=== PATIENT | female | born 1995 ===

== ENCOUNTER 2018-05-26 13:17 | Emergency (ER) | payer BC ==
[2018-05-26 13:48] VITALS: O2SAT 100
--- NOTE | 2018-05-26 15:00 | ED PDOC ---
HPI: Abdomen Time Seen by Provider: 05/26/18 14:19 Chief Complaint (Nursing): Abdominal Pain Chief Complaint (Provider): Vomiting, Abdominal Pain History Per: Patient History/Exam Limitations: no limitations Onset/Duration Of Symptoms: Days (x8) Current Symptoms Are (Timing): Still Present Additional Complaint(s): 23 year old female presents to the ED for evaluation of vomiting and abdominal pain beginning eight days ago. Patient reports that since onset, she has been vomiting 5-6 times per day. Patient notes that she had one episode of yellow stomach secretions, and one episode of blood tinged emesis, but it was not reoccurring. She states she was just going to wait until it passed on its own, but today at work she felt lightheaded associated with a headache and the sensation that she might pass out, prompting the visit. Otherwise, she denies diarrhea, black or bloody stool, fever, chills, vaginal bleeding or discharge, urinary frequency or dysuria, and hematuria, but does note dark urine. LNMP: 1 year ago due to Depo shot, last dose in April. PMD: none provided, but gyno is [facility] Past Medical History Reviewed: Historical Data, Nursing Documentation, Vital Signs Vital Signs: Last Vital Signs Temp 98.5 F 05/26/18 18:28 Pulse 74 05/26/18 18:28 Resp 17 05/26/18 18:28 BP 125/61 05/26/18 18:28 Pulse Ox 100 05/26/18 18:28 - Medical History PMH: Asthma - Surgical History Surgical History: No Surg Hx - Family History Family History: States: No Known Family Hx - Social History Current smoker - smoking cessation education provided: Yes Alcohol: Social Drugs: Cannabis (occasionally) - Home Medications Home Medications: Ambulatory Orders Medication Instructions Recorded Amoxicillin 1,000 mg PO BID #56 tablet 05/26/18 Clarithromycin [Biaxin Filmtab] 500 mg PO DAILY #28 tab 05/26/18 Omeprazole Magnesium [Prilosec Otc] 20 mg PO BID #30 tcp 05/26/18 Ondansetron ODT [Zofran ODT] 1 odt PO Q6 PRN #20 odt 05/26/18 - Allergies Allergies/Adverse Reactions: Allergies Allergy/AdvReac Type Severity Reaction Status Date / Time kiwi Allergy ITCHING Verified 05/26/18 13:45 lavender (Lavandula Allergy SWELLING Verified 05/26/18 13:45 angustifolia) pineapple Allergy ITCHING Verified 05/26/18 13:45 Review of Systems ROS Statement: Except As Marked, All Systems Reviewed And Found Negative Constitutional: Negative for: Fever, Chills Cardiovascular: Positive for: Light Headedness Gastrointestinal: Positive for: Vomiting (x5-6 per day), Abdominal Pain, Other ( dark urine). Negative for: Diarrhea, Melena (or bloody stool) Genitourinary Female: Negative for: Dysuria, Frequency, Hematuria, Vaginal Discharge, Vaginal Bleeding Neurological: Positive for: Headache Physical Exam - Reviewed Nursing Documentation Reviewed: Yes Vital Signs Reviewed: Yes - Physical Exam Appears: Positive for: Non-toxic, In Acute Distress (mild painful) Head Exam: Positive for: ATRAUMATIC, NORMOCEPHALIC Skin: Positive for: Warm, Dry Eye Exam: Positive for: EOMI, PERRL ENT: Negative for: Pharyngeal Erythema, Tonsillar Exudate Neck: Positive for: Painless ROM, Supple Cardiovascular/Chest: Positive for: Regular Rate, Rhythm. Negative for: Murmur Respiratory: Positive for: Normal Breath Sounds. Negative for: Wheezing Gastrointestinal/Abdominal: Positive for: Tenderness (epigastric). Negative for : Mass, Guarding, Rebound, Other (baltazar's sign and mcburney's point tenderness) Back: Positive for: Normal Inspection. Negative for: Decreased ROM Extremity: Positive for: Normal ROM. Negative for: Deformity Lymphatic: Negative for: Adenopathy Neurologic/Psych: Positive for: Alert. Negative for: Motor/Sensory Deficits - Laboratory Results Result Diagrams: 05/26/18 15:20 05/26/18 15:20 - ECG O2 Sat by Pulse Oximetry: 100 (RA) Pulse Ox Interpretation: Normal Medical Decision Making Medical Decision Making: Time: 1420 Initial Impression: vomiting and epigastric pain Ddx includes but is not limited to: gastritis, dehydration, gall bladder disease , hepatitis, pancreatitis, electrolyte abnormality, Initial Plan: --CMP --Lact acid, plasma --LDH --Lipase --Magnesium --Phosphorus --Urine preg --Urine dipstick --CBC with differential --Dextrose 5% / 0.9% 1000 ml IV 100 mls/hr --Lactated Ringers 1000ml IV 1000 mls/hr --Pepcid 20mg IVP --Zofran 8mg IV --Accucheck Accession No. : [id number] Patient Name / ID : ERICKA CARPENTER / [id number] Exam Date : 05/26/2018 15:59:36 ( Approved ) Study Comment : Sex / Age : F / 23Y Creator : Kavon Bishop MD Dictator : Kavon Bishop MD Laminating Machine Tender : Power Crane Operator : Kavon Bishop MD Approver2 : Report Date : 05/26/2018 16:44:42 My Comment : Date of service: 05/26/2018 HISTORY: Vomiting and abdominal pain COMPARISON: None. TECHNIQUE: Sonographic evaluation of the abdomen. FINDINGS: LIVER: Measures 12.5 cm. Patent portal vein. Portal venous flow: Hepatopetal. Unremarkable echogenicity of the liver parenchyma. No mass. No intrahepatic bile duct dilatation. GALLBLADDER: Gallbladder sludge without evidence gallstones. COMMON BILE DUCT: Measures 3.1 mm. No stones. No dilatation. PANCREAS: Unremarkable as visualized. No mass. No ductal dilatation. RIGHT KIDNEY: Measures 3.5 x 8.7cm. Normal echogenicity. No calculus, mass, or hydronephrosis. LEFT KIDNEY: Measures 3.7 x 9.2cm. Normal echogenicity. No calculus, mass, or hydronephrosis. SPLEEN: Normal in size and contour. No mass. AORTA: No aneurysmal dilatation. IVC: Unremarkable. OTHER FINDINGS: None. IMPRESSION: No acute findings related to/accounting for the clinical presentation. Additional benign and/or incidental findings described above. 5p On reeval pt feels better. DW pt findings and plan of care. Pt will be started on treatment for PUD. Advised f/u GI. Info for [facility] Connect for reeval and f/u GI. Scribe Attestation: Documented by Yvonne Iverson, acting as a scribe for Tiffanie Yoon MD. Provider Scribe Attestation: All medical record entries made by the Scribe were at my direction and personally dictated by me. I have reviewed the chart and agree that the record accurately reflects my personal performance of the history, physical exam, medical decision making, and the department course for this patient. I have also personally directed, reviewed, and agree with the discharge instructions and disposition. Disposition - Clinical Impression Clinical Impression: Abdominal pain Counseled Patient/Family Regarding: Studies Performed, Diagnosis, Need For Followup, Rx Given - Disposition Referrals: [facility] [Outside] [facility] [Outside] Michele Purdy MD [Staff Provider] - (TRY TO FOLLOW UP WITH [facility] WITHIN A WEEK) Disposition: Routine/Home Disposition Time: 17:09 Condition: STABLE Additional Instructions: YOU ARE BEING STARTED ON MEDICATIONS TO TREAT PEPTIC ULCER DISEASE AND GASTRITIS. YOU WILL NEED TO FOLLOW UP WITH GASTROENTEROLOGY TO CONFIRM DIAGNOSIS. TAKE MEDICATIONS PRESCRIBED RETURN TO ER IMMEDIATELY FOR: --INTRACTABLE PAIN OR VOMITING --FAINTING OR NEAR FAINTING --HIGH FEVERS --ANY OTHER WORRISOME SYMPTOMS OTHERWISE FOLLOW UP WITH [facility] OR YOUR PCP IN 1-2 DAYS FOR REEVALUATION AND REFERRAL TO [facility]. Prescriptions: Amoxicillin 1,000 mg PO BID #56 tablet Clarithromycin [Biaxin Filmtab] 500 mg PO DAILY #28 tab Omeprazole Magnesium [Prilosec Otc] 20 mg PO BID #30 tcp Ondansetron ODT [Zofran ODT] 1 odt PO Q6 PRN #20 odt PRN Reason: Nausea/Vomiting Instructions: Acute Abdomen (Belly Pain), Adult (DC), Peptic Ulcers (DC) Forms: [facility] (Thai), [facility] ED School/Work Excuse
[2018-05-26] MEDS: Lactated Ringer's 1,000 ML IV STA (15:14)
[2018-05-26 15:28] LABS: BASO # 0.1 K/uL (0.0-0.2); BASO % 0.9 % (0.0-2.0); EOS # 0.1 K/uL (0.0-0.7); EOS % 0.8 % (0.0-4.0); HEMOGLOBIN 14.4 g/dL (12.0-16.0); LYMPH # 2.6 K/uL (1.0-4.3); LYMPH % 32.1 % (20.0-40.0); MEAN CELL VOLUME 93.2 fl (81.0-99.0); MEAN CORPUSCULAR HEMOGLOBIN 31.2 pg (27.0-31.0); MEAN CORPUSCULAR HGB CONC 33.5 g/dL (33.0-37.0); MEAN PLATELET VOLUME 8.4 fl (7.2-11.7); MONO # 0.5 K/uL (0.0-0.8); MONO % 5.9 % (0.0-10.0); NEUT # 4.9 K/uL (1.8-7.0); NEUT % 60.3 % (50.0-75.0); RBC 4.63 Mil/uL (3.80-5.20); RED CELL DISTRIBUTION WIDTH 12.9 % (11.5-14.5); WHITE BLOOD COUNT 8.1 K/uL (4.8-10.8)
[2018-05-26 15:46] LABS: ALB/GLOB RATIO 1.3 (1.0-2.1); ALBUMIN 4.8 g/dL (3.5-5.0); ALT/SGPT 33 U/L (9-52); AST/SGOT 41 U/L (14-36); BLOOD UREA NITROGEN 5 mg/dl (7-17); CALCIUM 9.7 mg/dL (8.4-10.2); GFR AFRICAN-AMERICAN > 60; GFR NON-AFRICAN AMERICAN > 60; LIPASE 49 U/L (23-300)
--- NOTE | 2018-05-26 16:46 | US ---
Date of service: 05/26/2018 HISTORY: Vomiting and abdominal pain COMPARISON: None. TECHNIQUE: Sonographic evaluation of the abdomen. FINDINGS: LIVER: Measures 12.5 cm. Patent portal vein. Portal venous flow: Hepatopetal. Unremarkable echogenicity of the liver parenchyma. No mass. No intrahepatic bile duct dilatation. GALLBLADDER: Gallbladder sludge without evidence gallstones. COMMON BILE DUCT: Measures 3.1 mm. No stones. No dilatation. PANCREAS: Unremarkable as visualized. No mass. No ductal dilatation. RIGHT KIDNEY: Measures 3.5 x 8.7cm. Normal echogenicity. No calculus, mass, or hydronephrosis. LEFT KIDNEY: Measures 3.7 x 9.2cm. Normal echogenicity. No calculus, mass, or hydronephrosis. SPLEEN: Normal in size and contour. No mass. AORTA: No aneurysmal dilatation. IVC: Unremarkable. OTHER FINDINGS: None. IMPRESSION: No acute findings related to/accounting for the clinical presentation. Additional benign and/or incidental findings described above.
[2018-05-26] MEDS: Dextrose 5%/Lactated Ringer's 1,000 ML IV ONE (16:54)
[2018-05-26] MEDS ORDERED: Alum-Mag Hydrox-Simethicone Susp (30 mL) ONE (17:39)
[2018-05-26] MEDS: Alum-Mag Hydrox-Simethicone Susp (30 mL) PO STA (17:40)
[2018-05-26 18:28] VITALS: BP 125/61; PULSE 74; RESP 17; TEMP 98.5
== END 2018-05-26 18:43 | disposition home or self-care (01) ==
LOC: H.ER 13:17
DX: R10.9 Unspecified abdominal pain (principal); R11.10 Vomiting, unspecified
CPT/HCPCS: 76700; 80053; 81025; 83605; 83615; 83690; 83735; 84100; 85025; 96361; 96374; 96375; 99284; J2405; J7120